=== PATIENT | male | born 1980 | race Caucasian/White ===

== ENCOUNTER → 2017-02-22 | Outpatient (CLI) | payer SELFPAY ==
--- NOTE | 2017-02-22 21:54 | Diagnostic Imaging Report ---
INDICATION: 36-year-old male, rolled the right ankle, presents with right ankle pain. COMPARISON: None. FINDINGS: Three views of the the right ankle show no evidence of new or healing fractures, bony destruction or remodeling. The right ankle mortise is preserved. There is however soft tissue swelling over both the lateral malleoli. IMPRESSION: Right ankle soft tissue swelling, otherwise no evidence of acute fracture or subluxation seen with an intact right ankle mortise. Dictated by: Dictated on workstation # [id number]
== END ==
LOC: RAD 20:46
PROVIDERS: ATTEND Family Medicine
DX: S99.911A Unspecified injury of right ankle, initial encounter (principal); X58.XXXA Exposure to other specified factors, initial encounter; Y99.8 Other external cause status
CPT/HCPCS: 73610